=== PATIENT | male | born 1995 | race Caucasian/White ===

== ENCOUNTER 2017-07-11 20:25 | Emergency (ER) | payer BC ==
--- NOTE | 2017-07-11 20:47 | EDM.PDOC ---
ED HPI GENERAL MEDICAL PROBLEM - General Chief Complaint: Abdominal Pain Stated Complaint: GROIN PAIN Time Seen by Provider: 07/11/17 20:45 Source of Information: Reports: Patient History Limitations: Reports: No Limitations - History of Present Illness INITIAL COMMENTS - FREE TEXT/NARRATIVE: History of present illness: [22-year-old male comes in with complaints of left inguinal swelling with subsequent scrotal distortion on the left. Patient indicates is painful and he had it evaluated at home in [place], via ultrasound with negative findings but he indicates it's worse and he was instructed to come back if it was worse in any way.] Review of systems: As per history of present illness and below otherwise all systems reviewed and negative. Past medical history: As per history of present illness and as reviewed below otherwise noncontributory. Surgical history: As per history of present illness and as reviewed below otherwise noncontributory. Social history: No reported history of drug or alcohol abuse. Family history: As per history of present illness and as reviewed below otherwise noncontributory. Physical exam: HEENT: Atraumatic, normocephalic, pupils reactive, negative for conjunctival pallor or scleral icterus, mucous membranes moist, throat clear, neck supple, nontender, trachea midline. Lungs: Clear to auscultation, breath sounds equal bilaterally, chest nontender. Heart: S1S2, regular, negative for clicks, rubs, or JVD. Abdomen: Soft, nondistended, nontender. Negative for masses or hepatosplenomegaly. Negative for costovertebral tenderness. Pelvis: Stable nontender. Genitourinary: Deferred. Rectal: Deferred. Extremities: Atraumatic, negative for cords or calf pain. Neurovascular unremarkable. Neuro: Awake, alert, oriented. Cranial nerves II through XII unremarkable. Cerebellum unremarkable. Motor and sensory unremarkable throughout. Exam nonfocal. CT showed no signs of hernia Diagnostics: [UA, G chlamydia, CT abdomen and pelvis] Therapeutics: [] Impression: [Groin pain] Plan: [Follow-up with primary care] Definitive disposition and diagnosis as appropriate pending reevaluation and review of above. left lower abdomen Pain Score (Numeric/FACES): 7 - Related Data Allergies Allergy/AdvReac Type Severity Reaction Status Date / Time Sulfa (Sulfonamide Allergy Hives Verified 07/11/17 20:47 Antibiotics) Home Meds: Home Meds . [No Known Home Meds] 07/11/17 [History] ED ROS GENERAL - Review of Systems Review Of Systems: See Below (See history of present illness) ED EXAM, GENERAL - Physical Exam Exam: See Below (See history of present illness) Course - Vital Signs Last Recorded V/S: Last Vital Signs Temp 36.8 C 07/11/17 20:39 Pulse 79 07/11/17 20:39 Resp 18 07/11/17 20:39 BP 124/70 07/11/17 20:39 Pulse Ox 98 07/11/17 20:39 - Orders/Labs/Meds Orders: Active Orders 24 hr Category Date Time Status Abdomen Pelvis wo Cont [CT] Stat Exams 07/11/17 20:44 Taken CHLAMYDIA AND GONORRHEA BY [facility] Stat Lab 07/11/17 20:15 Received UA W/MICROSCOPIC [URIN] Stat Lab 07/11/17 20:44 Uncollected Departure - Departure Time of Disposition: 22:05 Disposition: Home, Self-Care 01 Condition: Good Clinical Impression: Lt groin pain - Discharge Information Referrals: PCP,None [Primary Care Provider] - Forms: ED Department Discharge Additional Instructions: The following information is given to patients seen in the emergency department who are being discharged to home. This information is to outline your options for follow-up care. We provide all patients seen in our emergency department with a follow-up referral. The need for follow-up, as well as the timing and circumstances, are variable depending upon the specifics of your emergency department visit. If you don't have a primary care physician on staff, we will provide you with a referral. We always advise you to contact your personal physician following an emergency department visit to inform them of the circumstance of the visit and for follow-up with them and/or the need for any referrals to a consulting specialist. The emergency department will also refer you to a specialist when appropriate. This referral assures that you have the opportunity for follow-up care with a specialist. All of these measure are taken in an effort to provide you with optimal care, which includes your follow-up. Under all circumstances we always encourage you to contact your private physician who remains a resource for coordinating your care. When calling for follow-up care, please make the office aware that this follow-up is from your recent emergency room visit. If for any reason you are refused follow-up, please contact the [facility] Emergency Department at and asked to speak to the emergency department charge nurse. Follow-up with primary care for evaluation or potential support Return to ED as needed as discussed [facility] [address] [place] [phone] - My Orders Last 24 Hours: My Active Orders 07/11/17 20:15 CHLAMYDIA AND GONORRHEA BY [facility] Stat 07/11/17 20:44 Abdomen Pelvis wo Cont [CT] Stat UA W/MICROSCOPIC [URIN] Stat - Assessment/Plan Last 24 Hours: My Active Orders 07/11/17 20:15 CHLAMYDIA AND GONORRHEA BY [facility] Stat 07/11/17 20:44 Abdomen Pelvis wo Cont [CT] Stat UA W/MICROSCOPIC [URIN] Stat
--- NOTE | 2017-07-12 10:36 | CT ---
EXAM DATE: 07/11/17 PATIENT'S AGE: 22 Patient: CATHI VILLAVICENCIO Facility: [place], [place] Site . Site : 1995 Study: CT Abdomen/Pelvis WO CONT [id number] 9:46:37 PM Ordering Physician: Doctor Jaquez Final Report: INDICATION: Left lower quadrant abdomen pain radiating into the groin. TECHNIQUE: CT abdomen and pelvis without contrast. COMPARISON: None. FINDINGS: LOWER CHEST: Unremarkable. LIVER: Normal in size and attenuation. No masses. GALLBLADDER AND BILE DUCTS: No stones or inflammation. No biliary dilatation. PANCREAS: Unremarkable. No mass or inflammation. SPLEEN: Normal in size. No masses. ADRENAL GLANDS: Normal in size. No nodules. KIDNEYS: There is a single tiny nonobstructive left renal stone. No other stones and no hydronephrosis. Kidneys are normal in caliber. GI TRACT: Unremarkable. Normal in caliber. No sign of mass or inflammation. Normal appendix. VASCULATURE: Unremarkable. LYMPH NODES: No lymphadenopathy. OMENTUM/PERITONEUM/ABDOMINAL WALL: No sign of hernia. No sign of mass or infiltration. No free air or significant free fluid. PELVIS: Unremarkable. No pelvic masses. BONES: No acute or significant findings. IMPRESSION: No acute or specific finding to explain left-sided abdomen or groin pain. There is a single tiny nonobstructive left renal stone. Remainder of the exam is unremarkable. Dictated by Fahad Stoll MD @ 07/11/2017 10:03:32 PM Dictated by: Fahad Stoll MD @ 07/11/2017 22:03:40 (Electronic Signature) Report Signed by Proxy. [facility]
== END 2017-07-11 22:24 | disposition home or self-care (01) ==
LOC: MW.ED 20:25
DX: R10.32 Left lower quadrant pain (principal); Z88.2 Allergy status to sulfonamides
CPT/HCPCS: 74176; 74176-26; 81001; 87491; 87591; 99282; 99284-25